=== PATIENT | female | born 1950 | race Two or more races ===

== ENCOUNTER → 2025-02-23 | Outpatient (CLI) | payer MEDICAID ==
[~2025-02-23] VITALS: Ht 173 cm; Wt 82.0 kg
--- NOTE | 2025-02-25 07:47 | DVHSR ---
APPROVED REPORT Exam: Nuclear Stress Test Indication: Palpitations , CHEST TIGHTNESS Stress Tech: Alayna Marcin DARCI JACOB Ht: 5 ft 8 in Wt: 180 lbs BSA: 1.95 m2 BMI: 27.36 Medical History Medical History: CHF, HTN, Diabetes Allergies: No known drug allergies Stress Test Details Stress Test: Exercise stress testing was performed using a Daryl protocol. HR Resting HR: 76 bpmMax Heart Rate (APMHR): 148.565662 bpm Max HR Achieved: 136 bpmTarget HR (85% APMHR): 125.425601 bpm % of APMHR: 91.89 Recovery HR: 112 bpm BP Resting BP: 150/77 mmHg Recovery BP: 161/88 mmHg ECG Resting ECG: Sinus Rhythm Clinical Reason for Termination: Maximal effort, Completed protocol Exercise duration: 9 min 00 sec Exercise capacity: 10.4 METs Nurse Comments Received patient ambulatory, A&O x4 and on RA. Patient is connected to cardiac cath technologist and vitals ar e WNL. For furhter details please refer to stress test documentation and cardio-neuro procedural note s. Reviewed POC and patient verbalized understanding. Treadmill stress test performed per isidoro gutierres with DR. JEFFERY present during test. Treadmill stress test performed per protocol. . Patient tolerated well and all vitals returned to [facility]. PATIENT DISCHARGED FROM STRESS LAB IN STABLE CONDITION. Stress ECG Conclusion stress echo shows hypercontractility and normal wall motion with stress portion no ischemia noted LVH noted NM EXAM: Myocardial Perfusion REST/STRESS Nuclear Conclusion stress echo shows hypercontractility and normal wall motion with stress portion no ischemia noted LVH noted
== END | disposition home or self-care (01) ==
LOC: XYW 11:57
PROVIDERS: ATTEND Student in an Organized Health Care Education/Training Program
DX: I11.0 Hypertensive heart disease with heart failure (principal); I50.9 Heart failure, unspecified; R00.2 Palpitations; R07.89 Other chest pain; R94.31 Abnormal electrocardiogram [ECG] [EKG]; E11.65 Type 2 diabetes mellitus with hyperglycemia; E78.00 Pure hypercholesterolemia, unspecified; Z79.4 Long term (current) use of insulin
CPT/HCPCS: 93017; 93350

== ENCOUNTER → 2025-03-19 | Outpatient (CLI) | payer MEDICAID ==
[2025-03-19 09:07] LABS: Basophils # (auto) 0 10 ^3/uL (0-0.2); Basophils % (auto) 0.6 % (0.0-2.0); Eosinophils # (auto) 0 10 ^3/uL (0-0.8); Eosinophils % (auto) 0.6 % (0.0-7.0); Hematocrit 46.8 % (36.0-46.0); Hemoglobin 16.1 g/dL (12.2-16.2); Lymphocytes # (auto) 2.8 10 ^3/uL (0.4-5.4); Lymphocytes % (auto) 37.2 % (10.0-50.0); Mean Corpuscular Hemoglobin 33.1 pg (28.0-32.0); Mean Corpuscular Hgb Conc. 34.4 g/dL (32.0-36.0); Mean Corpuscular Volume 96.1 fL (80.0-100.0); Monocytes # (auto) 0.5 10 ^3/uL (0-1.3); Monocytes % (auto) 6.6 % (0.0-12.0); Neutrophils # (auto) 4.2 10 ^3/uL (1.6-8.6); Nucleated Red Blood Cells % 0.2 %; Platelet Count (auto) 200 10^3/uL (140-450); Red Blood Cells 4.87 10^6/uL (4.0-5.20); Red Cell Distribution Width 13.2 % (11.8-14.3); White Blood Cell 7.6 10^3/uL (4.4-10.8)
[2025-03-19 09:23] LABS: Alanine Aminotransferase 26 U/L (7-40); Alkaline Phosphatase 85 U/L (46-116); Anion Gap 8 (5-15); Aspartate Aminotransferase 15 U/L (13-40); BUN/Creatinine Ratio 13.6 (10.0-20.0); Blood Urea Nitrogen 14 mg/dL (9-23); Calcium 10.3 mg/dL (8.7-10.4); Carbon Dioxide 28 mmol/L (20-31); Chloride 105 mmol/L (98-107); Potassium 4.7 mmol/L (3.5-5.1); Sodium 141 mmol/L (136-145); Total Protein 7.7 g/dL (5.7-8.2)
[2025-03-19 09:25] LABS: Albumin 4.9 g/dL (3.2-4.8); Glucose 167 mg/dL (74-106)
== END | disposition home or self-care (01) ==
LOC: LAB 08:43
PROVIDERS: ATTEND Student in an Organized Health Care Education/Training Program
DX: R73.03 Prediabetes (principal); Z86.79 Personal history of other diseases of the circulatory system
CPT/HCPCS: 36415; 80053; 83036; 83880; 84443; 85025

== ENCOUNTER → 2025-06-11 | Outpatient (CLI) | payer MEDICAID ==
[2025-06-11 08:24] LABS: Hematocrit 46.5 % (36.0-46.0); Hemoglobin 16.2 g/dL (12.2-16.2); Mean Corpuscular Hemoglobin 33.0 pg (28.0-32.0); Mean Corpuscular Volume 94.9 fL (80.0-100.0); Nucleated Red Blood Cells % 0.1 %
[2025-06-11 08:35] LABS: Urine Protein, UAD Negative (Negative)
[2025-06-11 08:50] LABS: Alanine Aminotransferase 24 U/L (7-40); Alkaline Phosphatase 89 U/L (46-116); Anion Gap 9 (5-15); BUN/Creatinine Ratio 16.2 (10.0-20.0); Blood Urea Nitrogen 16 mg/dL (9-23); Calcium 9.8 mg/dL (8.7-10.4); Carbon Dioxide 27 mmol/L (20-31); Chloride 107 mmol/L (98-107); Potassium 4.6 mmol/L (3.5-5.1); Sodium 143 mmol/L (136-145); Total Protein 7.7 g/dL (5.7-8.2)
[2025-06-11 08:52] LABS: Albumin 4.9 g/dL (3.2-4.8); Bilirubin, Total 1.7 mg/dL (0.2-1.0); Glucose 157 mg/dL (74-106)
[2025-06-11 08:59] LABS: INR 1.0 (0.9-1.15); Partial Thromboplastin Time 30.3 SEC (24.5-34.5); Prothrombin Time 10.6 sec (9.3-11.8)
== END | disposition home or self-care (01) ==
LOC: EDSEX → LAB 08:11 → EDSTATUS 06-18 11:45
PROVIDERS: ATTEND Internal Medicine Gastroenterology
DX: K92.2 Gastrointestinal hemorrhage, unspecified (principal); K59.00 Constipation, unspecified; R10.9 Unspecified abdominal pain
CPT/HCPCS: 36415; 80053; 81001; 85025; 85610; 85730

== ENCOUNTER → 2025-06-18 | Day surgery (SDC) | payer MEDICAID ==
[~2025-06-18] VITALS: Ht 172.7 cm; Wt 82.6 kg
[~2025-06-18] MED LIST: METOCLOPRAMIDE HCL 5MG/ml INJ 2ml VIAL ONE; ONDANSETRON HCL 4 MG/2 ML VIAL ONE; PROPOFOL 10 MG/ML 20 ML IV ONE
--- NOTE | 2025-06-18 10:44 | DVHHP2 ---
GI H&P Pre-Op Assessment Date: 06/18/25 Chief complaint: Blood in stool, right upper quadrant pain HPI: per clinic note Past medical history: per clinic note Past surgical history: per clinic note Family history: per clinic note Physical exam: General: NAD, AAOX3 HEENT: PERRL, no scleral icterus, normal hearing, gums without lesions or bleeding, oropharynx clear without erythema or exudate. Neck: Supple without enlargement of the thyroid, or lymphadenopathy. Chest: Normal size and shape, no tenderness, lung yan clear to auscultation and percussion, nonlabored breathing. Heart: RRR, no murmur Abdomen: non-distended, no tenderness to palpation, +BS, no hepatosplenomegaly Extremities: no edema Neurological: CN II-XII intact, sensation intact in all extremities, 5+ strength in all extremities Skin: No rashes, No jaundice Assessment: - Blood in stool, right upper quadrant pain Plan: - EGD - Colonoscopy - Risks (bleeding, infection, perforation, reaction to sedation medications and cardiopulmonary arrest) and benefit of the procedure were explained to patient. Patient agrees to undergo the procedure. DEBBY COTTO MD Jun 18, 2025 10:44
[2025-06-18 11:18] VITALS: PULSE 61; RESP 16; TEMP 97; O2SAT 94
--- NOTE | 2025-06-18 11:20 | DVHOP2 ---
Operative Report DATE OF OPERATION: 06/18/25 PROCEDURE: Upper Endoscopy. PREOPERATIVE INDICATION: The patient is a 75 -year-old male undergoing endoscopy for RUQ pain. POSTOPERATIVE DIAGNOSES: 1. Duodenitis in the bulb 2. Moderate gastritis PROCEDURE PERFORMED BY: Dallas Baer SCOPE: Olympus videoendoscope. ASA CLASS: 3 PREOPERATIVE MEDICATIONS: MAC with Jordan ALBA PROCEDURE IN DETAIL: After obtaining an informed consent, the patient was placed on his back. The patient was then sedated with the above medications. A bite block was placed between he teeth. The endoscope was then passed through the oropharynx, into the esophagus, and through the stomach and pylorus up to the second and third part of the duodenum. There was duodenitis in the bulb. Duodenal biopsies were obtained with cold forceps.. There was moderate gastritis. Gastric biopsies were obtained using cold forceps. The GE junction was normal in appearance at 37 cm. The esophagus was normal in appearance. The endoscope was then withdrawn. The patient tolerated the procedure well without difficulty. COMPLICATIONS : None SPECIMENS: Duodenal biopsy, Gastric biopsies DISPOSITION: D/C to home PLAN: 1. Await for biopsy result DALLAS BAER MD Jun 18, 2025 11:20
--- NOTE | 2025-06-18 11:22 | DVHOP2 ---
Operative Report DATE OF OPERATION: 06/18/25 PROCEDURE: Colonoscopy. PREOPERATIVE INDICATION: The patient is a 75 -year-old male undergoing colonoscopy for blood in stool. POSTOPERATIVE DIAGNOSES: 1. Two (3 mm, 4 mm) transverse colon polyp were removed with hot snare and retrieved. 2. Two 2 mm descending colon polyps were removed with cold biopsy forceps. 3. A 1 cm sigmoid polyp was removed with hot snare and retrieved. 4. Internal hemorrhoids. PROCEDURE PERFORMED BY: Dallas Baer M.D. SCOPE: Olympus videocolonoscope. ASA CLASS: 3 PREOPERATIVE MEDICATIONS: MAC with Jordan MEDICAL ADMINISTRATOR PROCEDURE IN DETAIL: After obtaining an informed consent, the patient was placed on left lateral decubitus position. He was then sedated with the above medications. A rectal examination was performed that was normal. The colonoscope was then passed through the anus into the rectosigmoid and through the descending, transverse, and ascending colon up to the cecum with visualization of the appendiceal orifice, base of the cecum and the ileocecal valve. Two (3 mm, 4 mm) transverse colon polyp were removed with hot snare and retrieved. Two 2 mm descending colon polyps were removed with cold biopsy forceps. A 1 cm sigmoid polyp was removed with hot snare and retrieved. There were internal hemorrhoids. The colonoscope was then withdrawn. The patient tolerated the procedure well without difficulty. WITHDRAWAL TIME: 10 minutes QUALITY OF THE PREP: Wall Bowel Prep score: 5 COMPLICATIONS : None SPECIMENS: Colon polyps DISPOSITION: D/C to home PLAN: 1. Repeat colonoscopy base on biopsy result DALLAS BAER MD Jun 18, 2025 11:22
--- NOTE | 2025-06-18 11:23 | DVHDS2 ---
Physician Discharge Progress N Final Diagnosis: Duodenitis, gastritis Colon polyp, internal hemorrhoids Operations or Procedures: Operations or Procedures EGD with cold forceps biopsies Colonoscopy with cold forceps polypectomy and hot snare polypectomy Condition on Discharge: Good Disposition: Home Discharge Instructions: Diet: Regular Activity: No Restrictions, As Tolerated Medications: Resume with previous home medications Follow Up Care: Discharge Statement: "Patient was advised to return to the ER or call 911 if any headaches, dizziness, shortness of breath, chest pain, abdominal pain, bleeding, fevers, or worsening of medical condition. Patient was counseled about treatment plan, medications, possible side effects, patientverbalized understanding. All questions were answered to the best of my ability. This discharge took greater then 30 minutes in planning, reviewing documentation, counseling the patient, and discussing with other team members." DEBBY COTTO MD Jun 18, 2025 11:23
[2025-06-18 12:00] VITALS: BP 147/71; PULSE 66; RESP 14; O2SAT 95
== END | disposition home or self-care (01) ==
LOC: GI 09:37 → EDUNIT# 12:15
PROVIDERS: ATTEND Internal Medicine Gastroenterology
DX: K92.1 Melena (principal); R10.11 Right upper quadrant pain; D12.3 Benign neoplasm of transverse colon; D12.4 Benign neoplasm of descending colon; D12.5 Benign neoplasm of sigmoid colon; K29.80 Duodenitis without bleeding; K29.50 Unspecified chronic gastritis without bleeding; K64.8 Other hemorrhoids; J45.909 Unspecified asthma, uncomplicated; I10 Essential (primary) hypertension; Z87.891 Personal history of nicotine dependence; Z79.899 Other long term (current) drug therapy; Z98.890 Other specified postprocedural states; Z90.49 Acquired absence of other specified parts of digestive tract
CPT/HCPCS: 43239; 45380; 45385; 82962; 88305; 88342; J2405; J2704; J2765; J7030

== ENCOUNTER 2025-08-31 09:25 | Outpatient (CLI) | payer MEDICAID ==
[2025-08-31 10:20] LABS: Hematocrit 44.8 % (41.0-53.0); Hemoglobin 16.0 g/dL (13.5-17.5); Mean Corpuscular Hemoglobin 33.7 pg (28.0-32.0); Mean Corpuscular Volume 94.6 fL (80.0-100.0); Nucleated Red Blood Cells % 0.0 %
[2025-08-31 10:44] LABS: Alanine Aminotransferase 16 U/L (7-40); Albumin 4.5 g/dL (3.2-4.8); Alkaline Phosphatase 90 U/L (46-116); Anion Gap 9 (5-15); BUN/Creatinine Ratio 13.3 (10.0-20.0); Blood Urea Nitrogen 12 mg/dL (9-23); Calcium 9.3 mg/dL (8.7-10.4); Carbon Dioxide 29 mmol/L (20-31); Chloride 106 mmol/L (98-107); Cholesterol 167 mg/dL (< 200); HDL Cholesterol 46 mg/dL (40-59); Potassium 4.0 mmol/L (3.5-5.1); Sodium 144 mmol/L (136-145); Total Protein 7.5 g/dL (5.7-8.2); Triglycerides 118 mg/dL (< 150)
[2025-08-31 10:48] LABS: Bilirubin, Total 1.2 mg/dL (0.2-1.0); Glucose 109 mg/dL (74-106)
[2025-08-31 10:50] LABS: Microalb/Creat Ratio, Urine 5.0
== END 2025-08-31 17:00 | disposition home or self-care (01) ==
LOC: LAB 09:25
PROVIDERS: ATTEND Nurse Practitioner Family
DX: I10 Essential (primary) hypertension (principal); E11.69 Type 2 diabetes mellitus with other specified complication; R35.1 Nocturia; Z00.01 Encounter for general adult medical examination with abnormal findings
CPT/HCPCS: 36415; 80053; 80061; 82043; 82570; 83036; 84153; 84443; 85025